=== PATIENT | female | born 1995 | race Asian ===

== ENCOUNTER 2019-07-29 15:48 | Emergency (ER) | payer BC, OTHER ==
[~2019-07-29] VITALS: Ht 157.5 cm; Wt 68.0 kg
[2019-07-29 15:58] VITALS: BP 139/78
--- NOTE | 2019-07-29 16:07 | NUR ---
DR URBINA MADE AWARE OF PATIENT STATUS. PATIENT GCS 15, AMBULATORY WITH STEADY GAIT, NO ACUTE DISTRESS NOTED- PATIENT PLACED IN CHAIR B
--- NOTE | 2019-07-29 16:15 | NUR ---
PT MOVED TO BED 7
--- NOTE | 2019-07-29 16:15 | NUR ---
LABS DRAWN BEDSIDE
--- NOTE | 2019-07-29 16:16 | NUR ---
C/O MID CP NONRADIATING ASSOCIATED WITH FEVER, CHILLS, LEDBETTER, COUGH RUNNY NOSE X 3 WEEKS. AFEBRILE AT THIS TIME. PATIENT DENIES ANY N/V/D. PATIENT STATES INSPIRATORY BREATHING MAKES IT WORSE. PT TACHY AT 144. PT DENIES CAFFIENE OR ENERGY DRINKS. STATES SHE USED WEEK APPROX 3 MONTHS AGO. DENIES HEAVY ALCOHOL USE. BED IS DOWN, LOCKED, BED RAIL X 1, ERMD TO SEE PT.
--- NOTE | 2019-07-29 16:25 | NUR ---
XRAY AT BEDSIDE
--- NOTE | 2019-07-29 16:28 | NUR ---
PT AMB TO BATHROOM WITH STEADY GAIT
[2019-07-29] MEDS ORDERED: NACL 0.9% 500 ML IV ONE ×2 (16:32→16:35)
[2019-07-29 16:50] LABS: HEMATOCRIT 37.9 % (36-48); HEMOGLOBIN 12.4 g/dL (12.0-16.0); MEAN CORPUSCULAR HEMOGLOBIN 29 pg (27-31); MEAN CORPUSCULAR HGB CONC 33 g/dL (33-37); MEAN CORPUSCULAR VOLUME 89.1 fL (80-94); PLATELET COUNT (AUTO) 376 K/uL (140-450); RED BLOOD CELL COUNT(AUTO) 4.25 MIL/uL (4.20-5.40); RED CELL DISTRIBUTION WIDTH 14.1 % (11.6-13.7)
[2019-07-29 17:13] LABS: ALBUMIN 4.1 g/dL (3.4-5.0); ANION GAP 15.5 (8-16); CARBON DIOXIDE 27.2 mmol/L (21-32); CREATININE 0.7 mg/dL (0.6-1.3); POTASSIUM 3.7 mmol/L (3.5-5.1); TOTAL BILIRUBIN 0.6 mg/dL (0.0-1.0)
--- NOTE | 2019-07-29 17:19 | NUR ---
RECTAL TEMP 100.2
--- NOTE | 2019-07-29 17:29 | NUR ---
DR URBINA AT BEDSIDE
[2019-07-29 17:36] LABS: WHITE BLOOD COUNT (AUTO) 17.3 K/uL (4.8-10.8)
[2019-07-29 17:37] LABS: BASOPHILS % (MANUAL) 0 % (0-2); EOSINOPHILS % (MANUAL) 0 % (0-4); LYMPHOCYTES % (MANUAL) 9 % (20-46); MONOCYTES % (MANUAL) 2 % (5-12)
[2019-07-29] MEDS ORDERED: ACETAMINOPHEN EXTRA STRENGTH 500 MG TAB PO ONE (17:50)
[2019-07-29] MEDS ORDERED: NACL 0.9% 1,000 ML IV ONE (17:50)
[2019-07-29] MEDS ORDERED: AZITHROMYCIN 250 MG TAB PO ONE (17:50)
[2019-07-29 17:57] LABS: APPEARANCE,URINE CLEAR (CLEAR); BILIRUBIN,URINE NEGATIVE (NEGATIVE); BLOOD, URINE NEGATIVE (NEGATIVE); COLOR,URINE YELLOW (YELLOW); LEUKOCYTE ESTERASE ,URINE NEGATIVE (NEGATIVE); NITRITE, URINE NEGATIVE (NEGATIVE); UGLUCOSE NEGATIVE (NEGATIVE)
[2019-07-29] MEDS ORDERED: cefTRIAXone 1,000 MG VIAL ONE (17:58)
--- NOTE | 2019-07-29 19:22 | NUR ---
REPORT GIVEN TO ROWENA GALICIA
--- NOTE | 2019-07-29 20:16 | NUR ---
PT RESTING IN BED, ON CELL PHONE. VSS. WILL CONTINUE TO MONITOR.
[2019-07-29 20:19] VITALS: BP 106/66
--- NOTE | 2019-07-29 20:42 | NUR ---
Patient discharged with v/s stable. Written and verbal after care instructions given and explained. Patient alert, oriented and verbalized understanding of instructions. Ambulatory with steady gait. All questions addressed prior to discharge. ID band removed. Patient advised to follow up with PMD. Rx of azithromycin given. Patient educated on indication of medication including possible reaction and side effects. Opportunity to ask questions provided and answered.
== END 2019-07-29 20:42 | disposition home or self-care (01) ==
LOC: MED 15:48
DX: J18.8 Other pneumonia, unspecified organism (principal); M54.9 Dorsalgia, unspecified
CPT/HCPCS: 36415; 71045; 80053; 81003; 81025; 84443; 84484; 85025; 85379; 93005; 96365; 99284; J0696; J7030; J7060